=== PATIENT | female | born 1960 | race Caucasian/White ===

== ENCOUNTER → 2016-04-22 | Outpatient (CLI) | payer OTHER ==
--- NOTE | ~2016-04-22 | CR169 ---
[facility] A Service of [facility] & [facility] RADIOLOGY TEXT RESULTS PATIENT: GIANCARLO FLETCHER LOCATION: [facility] : 58 UNIT #: [id number] AGE: [address]: Cesario Howell MD SEX: F ORDER DR: [id number] [address] [address] [id number] O MR#: [id number] Acc #: [id number] NAME: GIANCARLO FLETCHER : 1960 SEX: F STUDY DATE/TIME: 04/22/2016 12:54 UNIT: [facility] ROOM: STUDY DESCRIPTION: CR Knee 2 Views Lt Attending Physician: Cesario Howell M.D. Referring Physician: Cesario Howell M.D. Ordering Physician: Cesario Howell M.D. Primary Care Physician: Aliyah Padgett Aprn MEDICAL IMAGING REPORT This report is preliminary unless electronic signature is present. EXAM Left knee HISTORY Pain in left knee for a year. FINDINGS AP lateral and sunrise views of the left knee were obtained. There is joint space narrowing in the medial joint compartment with osteophyte formation medial femoral condyle and medial tibial plateau. There is also some spurring from the lateral portion of the patellofemoral joint. 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 No evidence of fracture or effusion. Dictated by... Prakash Selby M.D. THIS IS AN ELECTRONICALLY VERIFIED REPORT Prakash Selby M.D. at 04/23/2016 12:24 PM BRANDO/ervin TD: 04/23/2016 01:39 JOB #: [id number] MEDICAL IMAGING REPORT
--- NOTE | ~2016-04-22 | CR170 ---
[facility] A Service of [facility] / [facility] RADIOLOGY TEXT RESULTS PATIENT: GIANCARLO FLETCHER LOCATION: [facility] : 58 UNIT #: [id number] AGE: [address]: Cesario Howell MD SEX: F ORDER DR: [id number] [address] [address] [id number] O MR#: [id number] Acc #: [id number] NAME: GIANCARLO FLETCHER : 1960 SEX: F STUDY DATE/TIME: 04/22/2016 12:51 UNIT: [facility] ROOM: STUDY DESCRIPTION: CR Knee 2 Views Rt Attending Physician: Cesario Howell M.D. Referring Physician: Cesario Howell M.D. Ordering Physician: Cesario Howell M.D. Primary Care Physician: Aliyah Padgett Aprn MEDICAL IMAGING REPORT This report is preliminary unless electronic signature is present. EXAM Right knee HISTORY Pain in both knees for a year. FINDINGS AP lateral and sunrise views of the right knee were obtained. There is no fracture or effusion. There is mild joint space narrowing in the medial lateral joint compartment with osteophyte formation from the medial tibial plateau and medial femoral condyle. IMPRESSION 1. Degenerative changes in the medial joint compartment and minimal spurring from the lateral patellofemoral joint. 2. There is a 3 mm round bone density object seen medial to the patella on the sunrise view and this seems too far lateral to be a loose body and is likely a soft tissue calcification. Dictated by... Prakash Selby M.D. THIS IS AN ELECTRONICALLY VERIFIED REPORT Prakash Selby M.D. at 04/23/2016 12:24 PM BRANDO/rnasad TD: 04/23/2016 00:35 JOB #: [id number] [facility] A Service [facility] RADIOLOGY TEXT RESULTS PATIENT: GIANCARLO FLETCHER LOCATION: [facility] : 58 UNIT #: [id number] AGE: [address]: Cesario Howell MD SEX: F ORDER DR: MEDICAL IMAGING REPORT
== END | disposition home or self-care (01) ==
LOC: SRAD 12:43
DX: M17.0 Bilateral primary osteoarthritis of knee (principal); R93.7 Abnormal findings on diagnostic imaging of other parts of musculoskeletal system
CPT/HCPCS: 73560